=== PATIENT | female | born 2000 | race Caucasian/White ===

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

== ENCOUNTER 2018-03-10 16:31 | Emergency (ER) | payer BC ==
--- NOTE | 2018-03-10 16:45 | ED Physician Documentation ---
Lower Extremity Injury - HISTORIAN Historian: patient, parent - [facility] Chief Complaint: Lower Extremity Injury Additional Information: sliding into first base heard pop lt ankle pain swelling discoloration-denies other injury Onset: minutes (30) Where: park Severity: moderate Context: twist Associated Symptoms:: unable to bear weight Modifying Factors:: pain on movement - ROS CONST: no problems. denies: recent illness CVS/RESP: none. denies: chest pain, shortness of breath, cough GI/: denies: nausea, vomiting MS/SKIN/LYMPH: none NEURO: denies: headache, head injury, anxiety, depression - PAST HX Past History: none Immunizations: UTD Allergies/Adverse Reactions: Allergies Allergy/AdvReac Type Severity Reaction Status Date / Time No Known Drug Allergies Allergy Verified 03/10/18 17:05 Home Medications: Ambulatory Orders Medication Instructions Recorded NK [NK] 03/10/18 - SOCIAL HX Smoking History: non-smoker Alcohol Use: none Drug Use: none - FAMILY HX Family History: none - VITAL SIGNS Vital Signs: Vital Signs Temp Pulse Resp BP Pulse Ox 98.8 F 88 16 112/74 98 03/10/18 17:51 03/10/18 17:51 03/10/18 17:51 03/10/18 17:51 03/10/18 17:51 ED Results Lab/Radiology - Radiology Radiology Impressions: xray no flx seen - Orders Orders: ED Orders Category Date Time Status Micky Wrap Affected Extremity 1T Care 03/10/18 17:35 Active ANKLE 3 VIEWS OR MORE [RAD] Stat Exams 03/10/18 Completed Ketorolac Tromethamine [Toradol] Med 03/10/18 16:55 Discontinued 60 mg IM NOW ONE Lower Extremities Injury Phy - Physical Exam General Appearance: mild distress, moderate distress Ankle: left: non-tender (pain swelling) Gait: unable to bear weight Neuro/Vascular/Tendon: no vascular compromise, motor nml, sensation nml. No: abnml color, abnml cap refill, pulse deficit, sensory deficit, motor deficit Head/ENT: nml inspection Neck/Back: nml inspection Resp/CVS: chest non-tender, breath sounds nml, heart sounds nml, no resp. distress, lungs clear, reg. rate & rhythm Abdomen: non-tender Discharge Clincal Impression: fall ankle sprain Referrals: Natalya Keys PA [Primary Care Provider] - 2 Days Condition: Good Decision to Admit: NO Decision Time: 17:43
[2018-03-10] MEDS: KETOROLAC TROMETHAMINE 60 MG/2 ML VIAL IM ONE (17:04)
--- NOTE | 2018-03-10 17:08 | Diagnostic Imaging Report ---
JOSE BERNARD [facility] [address] [facility].[address] [address] Report Submission Date: Mar 10, 2018 5:06:01 PM CDT Patient Study Name: GLORIA GROVE Date: Mar 10, 2018 4:44:16 PM CDT Modality Type: DX Gender: F Description: LOWER EXTREMITY : 98 Institution: [facility] Physician: JOSE BERNARD Left ankle three views History: Pain after injury Findings: Anterior left ankle soft tissue swelling is present without fracture or dislocation. Electronically signed on Mar 10, 2018 5:06:01 PM CDT by: Justen DENNY
[2018-03-10 17:54] VITALS: BP 112/74
== END 2018-03-10 17:51 ==
LOC: ED 16:31
DX: S93.402A Sprain of unspecified ligament of left ankle, initial encounter (principal); W19.XXXA Unspecified fall, initial encounter; Y92.9 Unspecified place or not applicable; Y93.64 Activity, baseball; Y99.9 Unspecified external cause status
CPT/HCPCS: 73610; J1885